=== PATIENT | female | born 1940 | race Caucasian/White ===

== ENCOUNTER 2019-04-04 14:23 | Inpatient (IN) | payer MEDICARE ==
[~2019-04-04] VITALS: Ht 154.9 cm; Wt 42.2 kg
[2019-04-04] MEDS ORDERED: IV NORMAL SALINE 1000 ML BAG IV ONE (16:15)
[2019-04-04 16:31] LABS: BASOPHILS % (AUTO) 0.1 % (0.0-2.0); HEMATOCRIT 27.7 % (31.2-41.9); HEMOGLOBIN 8.7 g/dL (10.9-14.3); LYMPHOCYTES # (AUTO) 0.7 K/uL (20.0-40.0); LYMPHOCYTES % (AUTO) 9.1 % (20.5-51.5); MEAN CORPUSCULAR HEMOGLOBIN 22.2 uug (24.7-32.8); MEAN CORPUSCULAR HGB CONC 32 g/dL (32.3-35.6); MEAN CORPUSCULAR VOLUME 70.5 fL (75.5-95.3); MONOCYTES # (AUTO) 0.5 K/uL (2.0-10.0); MONOCYTES % (AUTO) 6.5 % (0.0-11.0); NEUTROPHILS # (AUTO) 6.8 K/uL (1.8-8.9); NEUTROPHILS % (AUTO) 84.3 % (38.5-71.5); PLATELET COUNT (AUTO) 186 K/uL (179-408); RED BLOOD CELL COUNT(AUTO) 3.93 MIL/uL (3.63-4.92); WHITE BLOOD COUNT (AUTO) 8.1 K/uL (3.8-11.8)
[2019-04-04 16:32] LABS: CREATININE 0.8 mg/dL (0.6-1.3); POTASSIUM 4.4 mmol/L (3.5-5.1)
[2019-04-04 16:38] LABS: BILIRUBIN,DIRECT 0.1 mg/dL (0.0-0.2); BILIRUBIN,TOTAL 0.3 mg/dL (0.2-1.0); TOTAL PROTEIN, SERUM 7.5 g/dL (6.4-8.2)
[2019-04-04] MEDS ORDERED: ACETAMINOPHEN 325 MG TABLET PO PRN (16:45)
[2019-04-04] MEDS ORDERED: HYDROCODONE/APAP 5-325MG TABLET PO PRN (16:45)
[2019-04-04] MEDS ORDERED: MAGNESIUM HYDROXIDE 30 ML LIQUID UDC PO PRN (16:45)
[2019-04-04] MEDS ORDERED: ONDANSETRON 4 MG/2 ML VIAL IV PRN (16:45)
[2019-04-04] MEDS ORDERED: Z GUARD REMEDY PASTE 57 GM TUBE TOP PRN (16:45)
[2019-04-04 18:04] LABS: *BILIRUBIN,URIN NEGATIVE (NEGATIVE); *CLARITY,URINE CLEAR (CLEAR); *COLOR,URINE YELLOW (YELLOW); *KETONES,URINE NEGATIVE (NEGATIVE); *UROBILINOGEN,URINE 0.2 E.U./dl (NORMAL); LEUKOCYTE ESTERASE ,URINE TRACE (NEGATIVE); NITRITE, URINE NEGATIVE (NEGATIVE); PH,URINE 7.5 (5.0-8.0); UGLUCOSE NEGATIVE (NEGATIVE)
[2019-04-04 18:12] LABS: *BLOOD, URINE TRACE (NEGATIVE)
[2019-04-04 18:13] LABS: SQUAMOUS EPITHELIAL CELL,UR FEW /HPF (NONE SEEN)
[2019-04-04] MEDS ORDERED: METF-441 PO (20:00)
[2019-04-04] MEDS ORDERED: TRAZ-182 PO (20:00)
[2019-04-04] MEDS ORDERED: AMLO10TA7 PO (20:00)
[2019-04-04] MEDS ORDERED: CALC-16 PO (20:00)
[2019-04-04] MEDS ORDERED: SIMV-46 PO (20:00)
[2019-04-04] MEDS ORDERED: LISI40TA4 PO (20:00)
[2019-04-04] MEDS ORDERED: MAGN400C PO (20:00)
[2019-04-04] MEDS ORDERED: PANT40TA4 PO (20:00)
[2019-04-04] MEDS ORDERED: MULT1TAB73 PO (20:00)
[2019-04-04] MEDS ORDERED: MAGN400O6 PO (20:00)
[2019-04-04] MEDS ORDERED: CYAN-51 PO (20:00)
[2019-04-04] MEDS ORDERED: ACET-54 PO (20:00)
[2019-04-04 20:15] VITALS: BP 151/79
[2019-04-04] MEDS ORDERED: DEXTROSE 50% 50 ML DISP.SYRIN IV PRN (20:15)
[2019-04-04] MEDS ORDERED: hydrALAZINE HCL 25 MG TABLET PO PRN (20:15)
[2019-04-04] MEDS ORDERED: MORPHINE SULFATE 2 MG/1 ML DISP.SYRIN IV PRN (20:15)
[2019-04-04] MEDS: SIMVASTATIN 20 MG TABLET PO SCH (21:40)
[2019-04-04] MEDS: TRAZODONE 50 MG TABLET PO SCH (21:40)
[2019-04-04] MEDS: BLOOD SUGAR DIAGNOSTIC 1 EACH STRIP VI SCH (21:43)
[2019-04-04] MEDS: INSULIN REGULAR, HUMAN 300 UNIT/3 ML VIAL SQ PRN (21:45)
[2019-04-05 05:47] VITALS: BP 136/55
[2019-04-05] MEDS ORDERED: ACETAMINOPHEN ES 500 MG TABLET PO PRN (06:15)
[2019-04-05] MEDS ORDERED: MAGNESIUM HYDROXIDE 30 ML LIQUID UDC PO PRN (06:15)
[2019-04-05] MEDS: BLOOD SUGAR DIAGNOSTIC 1 EACH STRIP VI SCH ×4 (06:38→20:18)
[2019-04-05] MEDS: PANTOPRAZOLE SODIUM 40 MG TABLET.DR PO SCH (06:41)
[2019-04-05 06:53] LABS: BASOPHILS % (AUTO) 0.4 % (0.0-2.0); EOSINOPHILS % (AUTO) 0.5 % (0.0-7.0); HEMATOCRIT 25.7 % (31.2-41.9); LYMPHOCYTES # (AUTO) 1.1 K/uL (20.0-40.0); LYMPHOCYTES % (AUTO) 25.4 % (20.5-51.5); MEAN CORPUSCULAR HEMOGLOBIN 22.5 uug (24.7-32.8); MEAN CORPUSCULAR HGB CONC 31 g/dL (32.3-35.6); MEAN CORPUSCULAR VOLUME 72.1 fL (75.5-95.3); MONOCYTES # (AUTO) 0.4 K/uL (2.0-10.0); NEUTROPHILS # (AUTO) 2.7 K/uL (1.8-8.9); NEUTROPHILS % (AUTO) 64.7 % (38.5-71.5); PLATELET COUNT (AUTO) 170 K/uL (179-408); RED BLOOD CELL COUNT(AUTO) 3.56 MIL/uL (3.63-4.92); WHITE BLOOD COUNT (AUTO) 4.2 K/uL (3.8-11.8)
[2019-04-05 07:13] LABS: CREATININE 0.6 mg/dL (0.6-1.3); POTASSIUM 3.3 mmol/L (3.5-5.1)
[2019-04-05 07:14] LABS: BILIRUBIN,TOTAL 0.3 mg/dL (0.2-1.0); MAGNESIUM 1.3 mg/dL (1.8-2.4); PHOSPHOROUS 3.1 mg/dL (2.5-4.9); TOTAL PROTEIN, SERUM 6.5 g/dL (6.4-8.2)
[2019-04-05] MEDS ORDERED: TRAZODONE 50 MG TABLET PO SCH (09:00)
[2019-04-05] MEDS ORDERED: MAGNESIUM OXIDE 400 MG TABLET PO SCH (09:00)
[2019-04-05] MEDS: METFORMIN HCL 850 MG TABLET PO SCH ×2 (09:23→17:21)
[2019-04-05] MEDS: TRAZODONE 50 MG TABLET PO SCH ×3 (09:23→17:21)
[2019-04-05] MEDS: AMLODIPINE 10 MG TABLET PO SCH (09:25)
[2019-04-05] MEDS: CALCIUM CARB/VITAMIN D 500MG-200UNITS TABLET PO SCH ×2 (09:25→17:21)
[2019-04-05] MEDS: LISINOPRIL 20 MG TABLET PO SCH (09:26)
[2019-04-05] MEDS: MULTIVITAMINS,THERAPEUTIC TABLET PO SCH (09:26)
[2019-04-05] MEDS: CYANOCOBALAMIN 1,000 MCG TABLET PO SCH (09:26)
[2019-04-05] MEDS ORDERED: POTASSIUM CHLORIDE 20 MEQ TAB.PRT.SR PO ONE (10:00)
[2019-04-05 11:00] VITALS: BP 112/57
[2019-04-05] MEDS: INSULIN REGULAR, HUMAN 300 UNIT/3 ML VIAL SQ PRN ×2 (11:56→20:18)
[2019-04-05] MEDS: MAGNESIUM SULFATE/D5W 100 ML IV SCH ×4 (14:25→17:21)
[2019-04-05 15:50] VITALS: BP 116/57
[2019-04-05] MEDS: SIMVASTATIN 20 MG TABLET PO SCH (20:10)
[2019-04-05 20:17] VITALS: BP 120/58
[2019-04-05] MEDS ORDERED: SIMVASTATIN 20 MG TABLET PO SCH (21:00)
[2019-04-06 06:11] LABS: BASOPHILS % (AUTO) 0.6 % (0.0-2.0); EOSINOPHILS % (AUTO) 0.6 % (0.0-7.0); HEMOGLOBIN 8.3 g/dL (10.9-14.3); LYMPHOCYTES # (AUTO) 1.4 K/uL (20.0-40.0); LYMPHOCYTES % (AUTO) 25.8 % (20.5-51.5); MEAN CORPUSCULAR HEMOGLOBIN 22.5 uug (24.7-32.8); MEAN CORPUSCULAR HGB CONC 32 g/dL (32.3-35.6); MEAN CORPUSCULAR VOLUME 70.7 fL (75.5-95.3); MONOCYTES # (AUTO) 0.5 K/uL (2.0-10.0); MONOCYTES % (AUTO) 8.2 % (0.0-11.0); NEUTROPHILS # (AUTO) 3.6 K/uL (1.8-8.9); NEUTROPHILS % (AUTO) 64.8 % (38.5-71.5); PLATELET COUNT (AUTO) 146 K/uL (179-408); RED BLOOD CELL COUNT(AUTO) 3.67 MIL/uL (3.63-4.92); WHITE BLOOD COUNT (AUTO) 5.5 K/uL (3.8-11.8)
[2019-04-06 06:25] VITALS: BP 139/64
[2019-04-06] MEDS: PANTOPRAZOLE SODIUM 40 MG TABLET.DR PO SCH (06:27)
[2019-04-06] MEDS: BLOOD SUGAR DIAGNOSTIC 1 EACH STRIP VI SCH ×4 (06:30→20:35)
[2019-04-06 06:37] LABS: IRON, SERUM 16 ug/dL (50-175)
[2019-04-06 06:42] LABS: ALANINE AMINOTRANSFERASE 13 U/L (14-59); ALKALINE PHOSPHATASE 34 U/L (50-136); ASPARTATE AMINOTRANSFERASE 12 U/L (15-37); BILIRUBIN,TOTAL 0.3 mg/dL (0.2-1.0); CARBON DIOXIDE 28 mmol/L (21-32); CHLORIDE 100 mmol/L (98-107); CREATININE 0.8 mg/dL (0.6-1.3); FERRITIN 21 ng/mL (8-252); GLUCOSE 108 mg/dL (74-106); MAGNESIUM 2.8 mg/dL (1.8-2.4); PHOSPHOROUS 2.2 mg/dL (2.5-4.9); POTASSIUM 4.2 mmol/L (3.5-5.1); TOTAL PROTEIN, SERUM 6.7 g/dL (6.4-8.2); UREA NITROGEN, BLOOD 13 mg/dL (7-18)
[2019-04-06 07:47] LABS: EOSINOPHILS % (MANUAL) 1 % (0-8); LYMPHOCYTES % (MANUAL) 25 % (20-40); MONOCYTES % (MANUAL) 8 % (2-10); NEUTROPHILS % (MANUAL) 66 % (42-75)
[2019-04-06] MEDS: METFORMIN HCL 850 MG TABLET PO SCH ×2 (08:30→17:10)
[2019-04-06] MEDS: MAGNESIUM OXIDE 400 MG TABLET PO SCH (09:00)
[2019-04-06] MEDS: TRAZODONE 50 MG TABLET PO SCH ×3 (09:03→16:33)
[2019-04-06] MEDS: AMLODIPINE 10 MG TABLET PO SCH (09:03)
[2019-04-06] MEDS: CALCIUM CARB/VITAMIN D 500MG-200UNITS TABLET PO SCH ×2 (09:03→16:33)
[2019-04-06] MEDS: CYANOCOBALAMIN 1,000 MCG TABLET PO SCH (09:04)
[2019-04-06] MEDS: LISINOPRIL 20 MG TABLET PO SCH (09:04)
[2019-04-06] MEDS: MULTIVITAMINS,THERAPEUTIC TABLET PO SCH (09:04)
[2019-04-06 11:30] VITALS: BP 130/57
[2019-04-06 15:40] VITALS: BP 116/64
[2019-04-06] MEDS ORDERED: NEUTRA PHOS PACKET PO ONE (16:30)
[2019-04-06 20:04] VITALS: BP 144/54
[2019-04-06] MEDS: SIMVASTATIN 20 MG TABLET PO SCH (20:33)
[2019-04-06] MEDS: INSULIN REGULAR, HUMAN 300 UNIT/3 ML VIAL SQ PRN (20:37)
[2019-04-06 21:00] LABS: *OCCULT BLOOD STOOL NEGATIVE (NEGATIVE)
[2019-04-07] MEDS: PANTOPRAZOLE SODIUM 40 MG TABLET.DR PO SCH (06:26)
[2019-04-07] MEDS: BLOOD SUGAR DIAGNOSTIC 1 EACH STRIP VI SCH ×4 (06:30→20:27)
[2019-04-07 06:41] VITALS: BP 128/58
[2019-04-07 07:34] LABS: CREATININE 0.7 mg/dL (0.6-1.3); MAGNESIUM 1.8 mg/dL (1.8-2.4); PHOSPHOROUS 2.6 mg/dL (2.5-4.9); POTASSIUM 4.2 mmol/L (3.5-5.1)
[2019-04-07 08:07] LABS: *OCCULT BLOOD STOOL NEGATIVE (NEGATIVE)
[2019-04-07] MEDS: AMLODIPINE 10 MG TABLET PO SCH (08:21)
[2019-04-07] MEDS: TRAZODONE 50 MG TABLET PO SCH ×3 (08:21→17:02)
[2019-04-07] MEDS: METFORMIN HCL 850 MG TABLET PO SCH ×2 (08:21→17:02)
[2019-04-07] MEDS: CYANOCOBALAMIN 1,000 MCG TABLET PO SCH (08:22)
[2019-04-07] MEDS: MULTIVITAMINS,THERAPEUTIC TABLET PO SCH (08:22)
[2019-04-07] MEDS: LISINOPRIL 20 MG TABLET PO SCH (08:22)
[2019-04-07] MEDS: CALCIUM CARB/VITAMIN D 500MG-200UNITS TABLET PO SCH ×2 (08:22→17:02)
[2019-04-07] MEDS: MAGNESIUM OXIDE 400 MG TABLET PO SCH (08:24)
[2019-04-07 10:57] VITALS: BP 118/55
[2019-04-07 16:06] VITALS: BP 120/57
[2019-04-07] MEDS: INSULIN REGULAR, HUMAN 300 UNIT/3 ML VIAL SQ PRN (20:37)
[2019-04-07] MEDS: SIMVASTATIN 20 MG TABLET PO SCH (20:38)
[2019-04-07 20:43] VITALS: BP 119/56
[2019-04-08 00:43] VITALS: BP 132/63
[2019-04-08] MEDS: PANTOPRAZOLE SODIUM 40 MG TABLET.DR PO SCH (06:04)
[2019-04-08 06:26] VITALS: BP 129/61
[2019-04-08] MEDS: BLOOD SUGAR DIAGNOSTIC 1 EACH STRIP VI SCH ×3 (06:37→17:05)
[2019-04-08] MEDS: TRAZODONE 50 MG TABLET PO SCH ×3 (09:15→17:02)
[2019-04-08] MEDS: MAGNESIUM OXIDE 400 MG TABLET PO SCH (09:15)
[2019-04-08] MEDS: METFORMIN HCL 850 MG TABLET PO SCH ×2 (09:16→17:02)
[2019-04-08] MEDS: MULTIVITAMINS,THERAPEUTIC TABLET PO SCH (09:16)
[2019-04-08] MEDS: CYANOCOBALAMIN 1,000 MCG TABLET PO SCH (09:16)
[2019-04-08] MEDS: CALCIUM CARB/VITAMIN D 500MG-200UNITS TABLET PO SCH ×2 (09:16→17:02)
[2019-04-08] MEDS: AMLODIPINE 10 MG TABLET PO SCH (09:19)
[2019-04-08] MEDS: LISINOPRIL 20 MG TABLET PO SCH (09:22)
[2019-04-08] MEDS ORDERED: ENOXAPARIN SODIUM 30 MG/0.3 ML DISP.SYRIN SUBCUT SCH (10:30)
[2019-04-08 16:05] VITALS: BP 105/60
== END 2019-04-08 18:00 | DRG 542 ==
LOC: ER 14:23 → EDBD 14:23 → MEDSURG3 18:47
PROVIDERS: ADMIT Internal Medicine; ATTEND Internal Medicine
DX: M80.052A Age-related osteoporosis with current pathological fracture, left femur, initial encounter for fracture (principal); E43 Unspecified severe protein-calorie malnutrition; I50.32 Chronic diastolic (congestive) heart failure; Z68.1 Body mass index [BMI] 19.9 or less, adult; W19.XXXA Unspecified fall, initial encounter; Y92.099 Unspecified place in other non-institutional residence as the place of occurrence of the external cause; E11.9 Type 2 diabetes mellitus without complications; I11.0 Hypertensive heart disease with heart failure; K21.9 Gastro-esophageal reflux disease without esophagitis; J44.9 Chronic obstructive pulmonary disease, unspecified; D64.9 Anemia, unspecified; R94.31 Abnormal electrocardiogram [ECG] [EKG]; R55 Syncope and collapse
CPT/HCPCS: 36415; 70030-TC; 71045; 72192; 83550; 83690; 83735; 84100; 85025; 85730; 87086; 93005; 93307; A4663; G0378; J1650; J1815; J3475; J7050